=== PATIENT | female | born 1935 | race Caucasian/White ===

== ENCOUNTER → 2025-01-17 | Outpatient (CLI) | payer OTHER | END | disposition home or self-care (01) | LOC: RAD 14:13 | PROVIDERS: ATTEND Specialist | DX: R05.1 Acute cough (principal) ==

== ENCOUNTER 2025-02-09 14:27 | Outpatient (CLI) | payer OTHER | END 2025-02-09 14:35 | disposition home or self-care (01) | LOC: TOM 14:27 | DX: S32.810A Multiple fractures of pelvis with stable disruption of pelvic ring, initial encounter for closed fracture (principal); S72.001A Fracture of unspecified part of neck of right femur, initial encounter for closed fracture; Z79.01 Long term (current) use of anticoagulants; M81.0 Age-related osteoporosis without current pathological fracture ==

== ENCOUNTER 2025-02-09 15:10 | Outpatient (CLI) | payer OTHER | END 2025-02-09 15:13 | disposition home or self-care (01) | LOC: NUCLEAR 15:10 | DX: I83.90 Asymptomatic varicose veins of unspecified lower extremity (principal); I82.409 Acute embolism and thrombosis of unspecified deep veins of unspecified lower extremity; I82.402 Acute embolism and thrombosis of unspecified deep veins of left lower extremity; I87.2 Venous insufficiency (chronic) (peripheral) ==